=== PATIENT | male | born 1975 | race Caucasian/White ===

== ENCOUNTER 2018-03-24 23:41 | Emergency (ER) | payer OTHER ==
[2018-03-24 23:47] VITALS: RESP 18
[2018-03-25] MEDS ORDERED: LIDOCAINE 1% INJ 10MG/ML (20 ML MDV) SQ ONE (00:43)
--- NOTE | 2018-03-25 01:10 | ED ---
General Adult HPI - General Source: patient, RN notes reviewed Mode of arrival: ambulatory Limitations: no limitations <Kory Rand P - Last Filed: 03/25/18 01:01> <Elisabeth Osorio P - Last Filed: 03/25/18 03:56> - General Chief complaint: Skin/Abscess/Foreign Body Stated complaint: CYST Time Seen by Provider: 03/24/18 23:57 - History of Present Illness Initial comments: 43-year-old male presents to the emergency department for a chief complaint of cyst on his back. Patient states this has been there for years however over the past few weeks has become painful and inflamed. Patient states he used to be able to sleep on his back but it is now painful to apply pressure to this area. He denies any fevers or chills at home. He denies any history of diabetes He denies any spreading redness or streaking redness. He states that he does have an appointment with comes on me coming up in the next week. He has not yet had any antibiotics for this.Patient has no other complaints at this time including shortness of breath, chest pain, abdominal pain, nausea or vomiting, headache, or visual changes. (Kory Rand) - Related Data Home Medications Medication Instructions Recorded Confirmed Levothyroxine Sodium [Synthroid] 25 mcg PO DAILY 07/19/14 03/25/18 Zolpidem [Ambien] 10 mg PO HS PRN 02/11/15 03/25/18 Ascorbic Acid [Vitamin C] 500 mg PO DAILY 03/25/18 03/25/18 Ergocalciferol [Vitamin D2] 50,000 unit PO SA 03/25/18 03/25/18 Ibuprofen 800 mg PO DAILY PRN 03/25/18 03/25/18 Vitamin B Complex 1 cap PO DAILY 03/25/18 03/25/18 Previous Rx's Medication Instructions Recorded Cephalexin [Keflex] 500 mg PO Q6HR 10 Days #12 cap 03/25/18 Sulfamethox-Tmp 800-160Mg [Bactrim 1 tab PO Q12HR #20 tab 03/25/18 DS 800-160 mg] Allergies Allergy/AdvReac Type Severity Reaction Status Date / Time meperidine HCl [From Demerol] Allergy Hallucinati Verified 03/25/18 00:01 ons phenytoin sodium Allergy Hallucinati Verified 03/25/18 00:01 [From Dilantin] ons phenytoin sodium extended Allergy Hallucinati Verified 03/25/18 00:01 [From Dilantin] ons Review of Systems ROS Other: All systems not noted in ROS Statement are negative. <Kory Rand P - Last Filed: 03/25/18 01:01> ROS Other: All systems not noted in ROS Statement are negative. <Elisabeth Osorio P - Last Filed: 03/25/18 03:56> ROS Statement: Those systems with pertinent positive or pertinent negative responses have been documented in the HPI. Past Medical History Past Medical History: Hypertension, Seizure Disorder, Thyroid Disorder Additional Past Medical History / Comment(s): Head injury History of Any Multi-Drug Resistant Organisms: None Reported Past Surgical History: No Surgical Hx Reported Past Psychological History: Anxiety Smoking Status: Former smoker Past Alcohol Use History: Occasional Past Drug Use History: None Reported <Kory Rand P - Last Filed: 03/25/18 01:01> General Exam Limitations: no limitations General appearance: alert, in no apparent distress Head exam: Present: atraumatic, normocephalic, normal inspection Eye exam: Present: normal appearance, PERRL, EOMI. Absent: scleral icterus, conjunctival injection, periorbital swelling ENT exam: Present: normal exam, mucous membranes moist Neck exam: Present: normal inspection. Absent: tenderness, meningismus, lymphadenopathy Respiratory exam: Present: normal lung sounds bilaterally. Absent: respiratory distress, wheezes, rales, rhonchi, stridor Cardiovascular Exam: Present: regular rate, normal rhythm Neurological exam: Present: alert, oriented X3, CN II-XII intact Psychiatric exam: Present: normal affect, normal mood Skin exam: Present: other (Patient appears to have a 4 cm x 4 cm cyst on the mid left paraspinal area. There is small purulent drainage noted. No cellulitic changes or spreading redness.) <Kory Rand P - Last Filed: 03/25/18 01:01> Vital Signs 03/24/18 03/25/18 23:45 01:22 Temperature 98.1 F 98.0 F Pulse Rate 85 79 Respiratory 18 18 Rate Blood Pressure 140/75 145/87 O2 Sat by Pulse 98 94 L Oximetry Procedures - Incision & Drainage Consent Obtained: verbal consent Site: back Size (cm): 4 Anesthetic Used: lidocaine 1% Amount (mLs): 1 I&D Cleaning Method: Chloroprep Sterile Field Used?: Yes Scalpel Used: #11 I&D Drainage Obtained: Blood Patient Tolerated Procedure: well, no complications <Kory Rand P - Last Filed: 03/25/18 01:01> Medical Decision Making <Kory Rand P - Last Filed: 03/25/18 01:01> <Elisabeth Osorio P - Last Filed: 03/25/18 03:56> - Medical Decision Making 43-year-old male with cyst on his back. Cyst about 4 cm x 4 cm. It is slightly erythematous but no evidence of a spreading redness or signs of cellulitis. No fevers or chills at home and patient is afebrile here in the emergency department. Patient states this is has been there for years but recently started to become painful and inflamed. I did attempt to incise and drain this cyst but I was not able to expel any purulent material. Patient will be put on antibiotics. He will follow up with his appointment with comes IV. He will monitor for any cellulitic changes which were discussed with him and return if these occur. He will return to the emergency department if he has any other worsening symptoms. (Kory Rand) I was available for consultation in the emergency department. The history and physical exam were done by the midlevel provider. I was consulted for this patient's care. I reviewed the case with the midlevel provider and based on their presentation of the patient, I agree with the assessment, medical decision making and plan of care as documented. (Elisabeth Osorio) Disposition Is patient prescribed a controlled substance at d/c from ED?: No Time of Disposition: 01:08 <Kory Rand P - Last Filed: 03/25/18 01:01> <Elisabeth Osorio P - Last Filed: 03/25/18 03:56> Clinical Impression: Abscess Disposition: HOME SELF-CARE Condition: Good Instructions: Abscess Incision and Drainage (ED), Abscess (ED) Additional Instructions: Please take antibiotic as directed. Please follow-up with Dr Terrazas at your original appointment. Please return to the emergency department if you have any worsening symptoms Prescriptions: Cephalexin [Keflex] 500 mg PO Q6HR 10 Days #12 cap Sulfamethox-Tmp 800-160Mg [Bactrim DS 800-160 mg] 1 tab PO Q12HR #20 tab Referrals: Fanta Suggs MD [Primary Care Provider] - 1-2 days Bita Terrazas MD [STAFF PHYSICIAN] - 1-2 days
[2018-03-25 01:24] VITALS: BP 145/87; PULSE 79; TEMP 98
== END 2018-03-25 01:25 | disposition home or self-care (01) ==
LOC: EC 23:41
DX: L02.212 Cutaneous abscess of back [any part, except buttock and flank] (principal); Z79.899 Other long term (current) drug therapy; Z88.8 Allergy status to other drugs, medicaments and biological substances; Z88.5 Allergy status to narcotic agent; Z87.891 Personal history of nicotine dependence
CPT/HCPCS: 10060; 99282

== ENCOUNTER 2018-07-22 23:27 | Emergency (ER) | payer OTHER ==
[2018-07-22 23:44] VITALS: TEMP 98.9
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
[2018-07-23 01:28] VITALS: BP 138/74; PULSE 87; RESP 16
--- NOTE | 2018-07-23 01:42 | XR ---
EXAM: XR Right Hip With Pelvis When Performed, 2 or 3 Views CLINICAL HISTORY: Pain TECHNIQUE: Two or three views of the right hip, with pelvis when performed. COMPARISON: No relevant prior studies available. FINDINGS: Bones/joints: No acute fracture or dislocation. Soft tissues: Unremarkable. IMPRESSION: No acute fracture or dislocation.
--- NOTE | 2018-07-23 01:43 | XR ---
EXAM: XR Pelvis, 1 or 2 Views CLINICAL HISTORY: fall, pain right iliac crest TECHNIQUE: Frontal view of the pelvis. COMPARISON: No relevant prior studies available. FINDINGS: Bones/joints: No acute fracture or dislocation. Soft tissues: Unremarkable. IMPRESSION: No acute fracture or dislocation.
--- NOTE | 2018-07-23 01:44 | XR ---
EXAM: XR Left Knee, 3 views CLINICAL HISTORY: Pain TECHNIQUE: Three views of the left knee. COMPARISON: No relevant prior studies available. FINDINGS: Bones/joints: No acute fracture or dislocation. Soft tissues: Unremarkable. IMPRESSION: No acute fracture or dislocation.
== END 2018-07-23 01:29 | disposition home or self-care (01) ==
LOC: EC 23:27
DX: S70.01XA Contusion of right hip, initial encounter (principal); S80.02XA Contusion of left knee, initial encounter; E07.9 Disorder of thyroid, unspecified; Z87.891 Personal history of nicotine dependence; Z79.890 Hormone replacement therapy; Z79.899 Other long term (current) drug therapy; Z88.8 Allergy status to other drugs, medicaments and biological substances; Z88.5 Allergy status to narcotic agent; W00.0XXA Fall on same level due to ice and snow, initial encounter; Y92.009 Unspecified place in unspecified non-institutional (private) residence as the place of occurrence of the external cause
CPT/HCPCS: 72170; 73502; 99283

== ENCOUNTER → 2018-07-27 | Outpatient (CLI) | payer OTHER ==
[2018-07-27 23:19] LABS: Vitamin D 25 Hydroxy 28.2 ng/mL (30.0-100.0)
[2018-07-28 00:20] LABS: Vitamin B12 >4000.0 pg/mL (211-911)
[2018-07-28 01:25] LABS: Hemoglobin A1C 7.9 % (4.0-6.0)
--- NOTE | 2018-07-28 09:20 | XR ---
EXAMINATION TYPE: XR chest 2V DATE OF EXAM: 07/27/2018 COMPARISON: Prior chest x-ray 02/27/2015 HISTORY: Chest pain TECHNIQUE: Frontal and lateral views of the chest are obtained. FINDINGS: Lung volumes are low. The patient is rotated. Patchy basilar density is noted. There is no pleural effusion or pneumothorax seen. The cardiac silhouette size is stable accounting for differen angelica in technique. The osseous structures are intact. IMPRESSION: Expiratory rotated exam. Probable basilar atelectasis. Follow-up PA and lateral chest x- ray may be of benefit.
== END ==
LOC: RADXRMAIN 16:54
PROVIDERS: ATTEND Internal Medicine
DX: R07.9 Chest pain, unspecified (principal); R53.83 Other fatigue
CPT/HCPCS: 71046; 82306; 82607; 83036; 84402

== ENCOUNTER 2018-12-14 15:42 | Emergency (ER) | payer OTHER ==
[2018-12-14 15:57] VITALS: BP 130/83; PULSE 93; RESP 18; TEMP 98.4
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
== END 2018-12-14 16:50 | disposition home or self-care (01) ==
LOC: EC 15:42
DX: M54.5 Low back pain (principal); I10 Essential (primary) hypertension; G40.909 Epilepsy, unspecified, not intractable, without status epilepticus; E07.9 Disorder of thyroid, unspecified; F41.9 Anxiety disorder, unspecified; Z87.891 Personal history of nicotine dependence; Z79.890 Hormone replacement therapy; Z79.899 Other long term (current) drug therapy; Z88.5 Allergy status to narcotic agent; Z88.8 Allergy status to other drugs, medicaments and biological substances; V89.2XXA Person injured in unspecified motor-vehicle accident, traffic, initial encounter; Y92.410 Unspecified street and highway as the place of occurrence of the external cause
CPT/HCPCS: 99283

== ENCOUNTER → 2019-01-05 | Outpatient (CLI) | payer OTHER ==
--- NOTE | 2019-01-05 14:51 | XR ---
EXAMINATION TYPE: XR Hip Complete RT DATE OF EXAM: 01/05/2019 COMPARISON: 07/23/2018 HISTORY: Pain TECHNIQUE: 2 views submitted FINDINGS: There is no evidence of erosive change or acute fracture. Hypertrophic change of the lateral margin t he acetabulum. IMPRESSION: 1. Mild hypertrophic change of the acetabulum can be associated with femoral acetabular impingement.
--- NOTE | 2019-01-05 14:52 | XR ---
EXAM TYPE: LUMBAR SPINE X RAY SERIES COMPARISON: NONE HISTORY: Pain TECHNIQUE: 4 views are submitted. FINDINGS: Alignment is anatomic. The pedicles are intact. The transverse processes are intact. There is no s pondylolysis or spondylolisthesis. Hypertrophic spurring noted at thoracolumbar junction. Facet arth ropathy particularly noted involving the lower lumbar spine. IMPRESSION: 1. Multilevel mild hypertrophic changes. There is marked facet arthropathy near the lumbosacral junct ion. Correlate with MRI as clinically warranted..
== END | disposition home or self-care (01) ==
LOC: RADXRMAIN 14:34
PROVIDERS: ATTEND Internal Medicine
DX: M48.8X7 Other specified spondylopathies, lumbosacral region (principal); M89.38 Hypertrophy of bone, other site
CPT/HCPCS: 72100; 73502

== ENCOUNTER → 2020-07-10 | Outpatient (CLI) | payer OTHER ==
[2020-07-11 01:58] LABS: African American GFR (CKD) 84.7 (60.0-200.0); Albumin 4.5 g/dL (3.80-4.90); Albumin/Globulin Ratio 1.8 (1.60-3.17); Anion Gap 12.4 mmol/L (4.00-12.00); BUN/Creat Ratio 17.5 Ratio (12.00-20.00); Calcium 9.1 mg/dL (8.7-10.3); Carbon Dioxide 23.6 mmol/L (21.6-31.8); Chol/HDL Ratio 5.35; Globulin 2.5 g/dL (1.6-3.3); LDL Cholesterol,Calculated 117.2 mg/dL (0.0-131.0); Non-African American GFR(CKD) 73.1 (60.0-200.0); Potassium 4.8 mmol/L (3.5-5.5); Total Bilirubin 0.9 mg/dL (0.3-1.2); VLDL Calculation 56.8 mg/dL (5.00-40.00)
[2020-07-11 02:06] LABS: T4, Free (Free Thyroxine) 1.5 ng/dL (0.80-1.80)
[2020-07-11 03:38] LABS: Hemoglobin A1C 9.7 % (4.0-6.0)
== END | disposition home or self-care (01) ==
LOC: LABWHC1 16:21
PROVIDERS: ATTEND Internal Medicine
DX: I10 Essential (primary) hypertension (principal); E11.9 Type 2 diabetes mellitus without complications
CPT/HCPCS: 36415; 80053; 80061; 83036; 84439; 84443; 84481

== ENCOUNTER → 2021-01-15 | Outpatient (CLI) | payer OTHER ==
[2021-01-15 17:07] LABS: Appearance,Urine Cloudy (Clear); Bilirubin,Urine Negative (Negative); Blood,Urine Large (Negative); Color,Urine Dark Brown; Glucose,Urine (UA) 3+ (Negative); Hyaline Casts,Urine 84 /lpf (0-2); Ketones,Urine 1+ (Negative); Leukocyte Esterase,Urine Large (Negative); Mucus,Urine Few /hpf; Nitrite,Urine Negative (Negative); Protein,Urine 2+ (Negative); RBC,Urine >182 /hpf (0-5); Specific Gravity,Urine 1.032 (1.001-1.035); WBC,Urine >182 /hpf (0-5)
[2021-01-16 03:41] LABS: Hemoglobin A1C 10.6 % (4.0-6.0)
[2021-01-16 05:08] LABS: African American GFR (CKD) 105.6 (60.0-200.0); Albumin 4.3 g/dL (3.80-4.90); Albumin/Globulin Ratio 1.59 (1.60-3.17); Anion Gap 10.2 mmol/L (4.00-12.00); Calcium 9.3 mg/dL (8.7-10.3); Carbon Dioxide 26.8 mmol/L (21.6-31.8); Chol/HDL Ratio 4.47; Globulin 2.7 g/dL (1.6-3.3); LDL Cholesterol,Calculated 50.8 mg/dL (0.0-131.0); Non-African American GFR(CKD) 91.1 (60.0-200.0); Potassium 4.3 mmol/L (3.5-5.5); Total Bilirubin 0.8 mg/dL (0.3-1.2); VLDL Calculation 60.2 mg/dL (5.00-40.00)
[2021-01-16 07:13] LABS: Urine Creatinine 345.2 mg/dL
--- NOTE | 2021-01-16 08:34 | XR ---
EXAMINATION TYPE: XR chest 2V DATE OF EXAM: 01/15/2021 COMPARISON: 07/27/2018 TECHNIQUE: PA and lateral views submitted. HISTORY: Chest pain FINDINGS: The lungs are clear and there is no pneumothorax, pleural effusion, or focal pneumonia. IMPRESSION: 1. No acute process.
== END | disposition home or self-care (01) ==
LOC: LABWHC1 15:56
PROVIDERS: ATTEND Internal Medicine
DX: E11.9 Type 2 diabetes mellitus without complications (principal); E78.5 Hyperlipidemia, unspecified; R06.02 Shortness of breath; R07.9 Chest pain, unspecified
CPT/HCPCS: 36415; 71046; 80053; 80061; 81001; 82043; 82570; 83036

== ENCOUNTER 2021-05-07 19:21 | Emergency (ER) | payer OTHER ==
[2021-05-07 19:59] VITALS: RESP 18
[2021-05-07] MEDS ORDERED: SODIUM CHLORIDE 0.9% 50 ML IVPB ONE (20:30)
[2021-05-07] MEDS ORDERED: SOTROVIMAB (EUA) 500 MG in SODIUM CHLORIDE 0.9% 100 ML IVPB ONE (20:30)
[2021-05-07 21:55] VITALS: BP 116/74; PULSE 96; TEMP 99.6
--- NOTE | 2021-05-07 22:14 | ED ---
General Adult HPI - General Chief complaint: Upper Respiratory Infection Stated complaint: cough Time Seen by Provider: 05/07/21 19:36 Source: patient, RN notes reviewed, old records reviewed Mode of arrival: ambulatory Limitations: no limitations - History of Present Illness Initial comments: Patient is a 46-year-old male who presents emergency Department seeking COVID-19 evaluation. Patient states that he has a known exposure, as on Saturday 05/05 history neuro was having symptoms. Patient's treatment is a positive that day. Patient states he began having in worsening acute on chronic cough that day. 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 Denies any fevers, chills, nausea, vomiting, diarrhea. Denies dyspnea. Endorses a chronic productive cough. Denies any shortness of breath, chest pain. His no other acute complaints at this time. Patient was vaccinated as well as a booster for COVID-19. He would like monoclonal antibody therapy if he is positive. - Related Data Home Medications Medication Instructions Recorded Confirmed Levothyroxine Sodium [Synthroid] 25 mcg PO DAILY 07/19/14 03/25/18 Zolpidem [Ambien] 10 mg PO HS PRN 02/11/15 03/25/18 Ascorbic Acid [Vitamin C] 500 mg PO DAILY 03/25/18 03/25/18 Ergocalciferol [Vitamin D2] 50,000 unit PO SA 03/25/18 03/25/18 Ibuprofen 800 mg PO DAILY PRN 03/25/18 03/25/18 Vitamin B Complex 1 cap PO DAILY 03/25/18 03/25/18 Previous Rx's Medication Instructions Recorded Cephalexin [Keflex] 500 mg PO Q6HR 10 Days #12 cap 03/25/18 Sulfamethox-Tmp 800-160Mg [Bactrim 1 tab PO Q12HR #20 tab 03/25/18 DS 800-160 mg] Ondansetron Odt [Zofran Odt] 4 mg PO Q8HR PRN #10 tab 07/23/18 Acetaminophen Tab [Tylenol] 500 mg PO Q6H PRN 7 Days #28 tablet 05/07/21 Albuterol Inhaler [Ventolin Hfa 1 puff INHALATION RT-QID #8 gm 05/07/21 Inhaler] Allergies Allergy/AdvReac Type Severity Reaction Status Date / Time meperidine HCl [From Demerol] Allergy Hallucinati Verified 05/07/21 19:31 ons phenytoin sodium Allergy Hallucinati Verified 05/07/21 19:31 [From Dilantin] ons phenytoin sodium extended Allergy Hallucinati Verified 05/07/21 19:31 [From Dilantin] ons Review of Systems ROS Statement: Those systems with pertinent positive or pertinent negative responses have been documented in the HPI. Review of Systems: CONST: Denies fever EYES: Denies blurry vision ENT: Endorses nasal congestion, cough. C/V: Denies Chest pain RESP: Denies shortness of breath GI: Denies abdominal pain : Denies dysuria SKIN: Denies rash. MSK: Denies joint pain. NEURO: Denies headache ROS Other: All systems not noted in ROS Statement are negative. Past Medical History Past Medical History: Hypertension, Seizure Disorder, Thyroid Disorder Additional Past Medical History / Comment(s): Head injury History of Any Multi-Drug Resistant Organisms: None Reported Past Surgical History: Orthopedic Surgery Additional Past Surgical History / Comment(s): cysts removed from wrist, left leg Past Psychological History: Anxiety Smoking Status: Former smoker Past Alcohol Use History: Occasional Past Drug Use History: None Reported General Exam - General Exam Comments Initial Comments: General: Appears in no acute distress. HEAD: Normal with no signs of head trauma. EYES: PERRLA, EOMI, conjunctiva normal, no discharge. ENT: Hearing grossly intact, normal oropharynx. RESPIRATORY: Clear breath sounds bilaterally. No wheezes, rales, or rhonchi. Not hypoxic. No increased work of breathing. C/V: Regular rate and rhythm. S1 and S2 auscultated, no edema, peripheral pulses 2+ and intact throughout ABD: Abd is soft, nontender, nondistended EXT: Normal range of motion, no obvious deformity SKIN: No rashes or lesions observed on exposed skin. NEURO: Alert and oriented 4. Limitations: no limitations Course Vital Signs 05/07/21 05/07/21 05/07/21 19:27 19:58 21:54 Temperature 98.2 F 99.6 F Pulse Rate 101 H 96 Respiratory 20 18 18 Rate Blood Pressure 163/97 116/74 O2 Sat by Pulse 96 97 Oximetry Medical Decision Making - Medical Decision Making Based on the patient's presentation and physical exam, I'm concerned for possible COVID-19 infection. COVID-19 swab will be obtained. Patient is not hypoxic. There is no increased work of breathing. I do not believe that further laboratory studies or imaging is required at this time. COVID-19 swab is positive. I discussed with him monoclonal antibody therapy and he consented to therapy. Patient tolerated therapy well. There are no ALLERGIC reactions. Patient will be discharged home at this time. I did discuss quarentine with the patient. I will provide the patient with a prescription for albuterol inhaler, Tylenol. I instructed the patient to follow up with their PCP in the next 3 days. I explained that the patient should return to the emergency department if they experience any worsening symptoms. Strict return precautions were discussed with the patient. The patient expressed understanding of these instructions. I answered all questions that the patient had. The patient was discharged home in good condition with their prescriptions and follow up information. - Lab Data Lab Results 05/07/21 Range/Units 19:33 Coronavirus (PCR) Detected A (Not Detectd) Disposition Clinical Impression: COVID-19 virus infection Disposition: HOME SELF-CARE Condition: Good Instructions (If sedation given, give patient instructions): Coronavirus Disease 2019 (COVID-19) Prescriptions: Acetaminophen Tab [Tylenol] 500 mg PO Q6H PRN 7 Days #28 tablet PRN Reason: Fever Albuterol Inhaler [Ventolin Hfa Inhaler] 1 puff INHALATION RT-QID #8 gm Is patient prescribed a controlled substance at d/c from ED?: No Referrals: Fanta Suggs MD [Primary Care Provider] - 1-2 days
== END 2021-05-07 22:31 | disposition home or self-care (01) ==
LOC: EC 19:21
DX: U07.1 COVID-19 (principal); I10 Essential (primary) hypertension; E07.9 Disorder of thyroid, unspecified; F41.9 Anxiety disorder, unspecified; Z88.1 Allergy status to other antibiotic agents; Z87.891 Personal history of nicotine dependence
CPT/HCPCS: 99283; 96360; 87635; Q0247